=== PATIENT | male | born 1960 | race Caucasian/White ===

== ENCOUNTER → 2018-01-13 | Day surgery (SDC) | payer MEDICAID, OTHER ==
[~2018-01-13] MED LIST: LIDOCAINE 1% 300 MG/30 ML SDV ONE
== END | disposition home or self-care (01) ==
LOC: FIMAGING 07:54
PROVIDERS: ATTEND Nurse Practitioner Family
PROC: 02H633Z Insertion of Infusion Device into Right Atrium, Percutaneous Approach (ICD-10-PCS; principal; 2018-01-13)
DX: A69.20 Lyme disease, unspecified (principal)
CPT/HCPCS: 36569; 77001; C1751

== ENCOUNTER 2018-07-07 10:59 | Emergency (ER) | payer MEDICAID, OTHER ==
[2018-07-07] MEDS ORDERED: IBUPROFEN 600 MG TAB PO ONE ×2 (11:12→11:14)
[2018-07-07] MEDS ORDERED: LIDOCAINE 4%/MENTHOL 1% PATCH TD ONE (12:07)
--- NOTE | 2018-07-07 12:09 | EDPHY ---
General - History Smoking Status: Never smoked Time Seen by Provider: 07/07/18 11:55 Narrative: CLINICAL IMPRESSION: Upper back pain, fall ASSESSMENT/PLAN: Patient is a 57-year-old male with no significant medical history who presents with a complaint of upper back pain after slipping and falling on the ice. Patient is afebrile and not toxic appearing, he is in no acute distress on arrival. HSNE intact with no significant red flags. Thoracic CT today with acute T4 compression fracture. History and physical examination today is consistent with acute T4 compression fracture. He had no saddle paresthesias, lower extremity numbness, tingling, major motor weakness, urinary retention or bowel/bladder incontinence. No indication for emergent MRI. There were no clinical findings to suggest cauda equina syndrome, epidural abscess/hematoma, epidural compression syndrome, AAA, dissection or additional emergent intraabdominal infectious/obstructive process. Patient was given single dose of ibuprofen and a lidoderm patch was placed while in the ED with improvement of his pain. Neurosurgery was consulted , I discussed this case directly with Dr. Zhong. Recommendation was for CT-0 brace and follow up in 2 weeks with repeat imaging at that time. The patient was fitted by [employer] for his [employer] OF [employer] brace and remained neurologically intact. His pain improved. On repeat exam prior to discharge he is well-appearing, his neurological exam remained grossly normal with no focal deficit and he was able to ambulate independently without difficulty. Strict return precautions discussed- he will return for increased or unmanageable pain, new injury, new midline back pain, numbness, tingling, weakness of legs, loss of bowel or bladder control, saddle paresthesia, urinary retention, loss of bowel or bladder control, difficulty walking or for any other new, worsening or worrisome symptoms. Patient verbalizes understanding and he is in agreement with plan. DIFFERENTIAL DX: Fracture, subluxation, epidural compression syndrome, cauda equina ED COURSE: 1210: Case discussed with Dr. Locke, will proceed with thorax CT. CHIEF COMPLAINT: Upper back pain HPI: Patient is a 57-year-old male with no significant medical history who presents to the emergency department with midline thoracic pain after sustaining a slip and fall on the ice. Patient reports he was out walking in his driveway when he slipped causing him to land directly on his upper back, feels like there is a golf ball in the center of his spine. He did not hit his head, there was no loss of consciousness. Patient denies saddle paresthesias, lower extremity numbness, tingling, major motor weakness, urinary retention or bowel/bladder incontinence. He has no history of neck or back problems. Denies any other injury. PAST MEDICAL HISTORY: Denies Family History: Not contributory Social History: Denies ROS: A full 10 point review of systems was negative except for those mentioned in HPI. PHYSICAL EXAM: General Appearance: Well-developed, uncomfortable appearing however not toxic- appearing. HENT: Normocephalic, atraumatic. External ears are normal. TMs are clear bilaterally no perforation or hemotympanum. Oropharynx clear is no erythema or exudates, no tonsillar hypertrophy or asymmetry. Dentition without abnormality. Eyes: PERRLA, EOMI intact with no evidence of entrapment, no swelling, discharge , pain or photosensitivity. Conjunctiva pink, no pallor or injection Neck: Supple, nontender, no lymphadenopathy, no midline pain, FROM, no meningismus. Respiratory: There are no retractions, lungs are clear to auscultation. Cardiac: Regular rate and rhythm, no murmurs or gallops. Gastrointestinal: Abdomen is soft, nontender, bowel sounds normal, no masses/ hernia, no rigidity, guarding or focal peritoneal findings. Back: No step-off, palpable bony abnormality, edema, erythema or ecchymosis of the cervical, thoracic or lumbar spines. TTP: Upper midline T-spine without obvious deformity, ecchymosis or wound. Full range of motion of all spines 5/5 and equal strength of the UEs and LEs bilaterally including shoulder shrug. Pulses: 2+ and equal radial, DP and PT pulses bilaterally. Sensation intact and symmetric to light touch from face, UEs and LEs bilaterally. Back Pain Pathway Low/medium concern for Acute Spinal Emergency (ASE) High Sensitivity Neuro Exam (HSNE) T1: move fingers apart- no deficit T2-12: trunk sensation- no deficit Lumbar pain L1: inner thigh sensation- no deficit L2: ADduct thigh (cross legs) -no deficit L3: Extend knee- no deficit L4: Ankle dorsiflexion- no deficit L5: Great toe extension- no deficit S1: Flex knee- no deficit S3-4: bladder/bowel function- no dysfunction HSNE no deficit Skin: Warm, dry, no rashes, no nodules on palpation. MEDICAL DECISION MAKING: Patient was seen independently. Secondary supervising physician at time of evaluation was Dr. Locke, he did not personally evaluate this patient however we discussed case, results and plan of care. Diagnosis: T4 compression fracture. New, requires workup Summary: See Assessment and Plan for summary of ED visit Clinical lab tests: Not applicable. Independent visualization of images, tracing, or specimens: Yes. Decision to obtain medical records or history from someone other than the patient: No Review / Summarize previous medical records: No Discussed patient with another provider: Yes, Dr. Locke and Dr. Zhong Patient Progress: Stable, discharged. (Annabel Bal) Medical Decision Making: I did not see this patient while he was in the emergency department. However his care was discussed with the PA while the patient was in the department. I agree with treatment plan and management (Mikey Locke) - Objective Vital Signs: Initial Vital Signs Temperature (C) 36.6 C 07/07/18 11:03 Heart Rate 59 L 07/07/18 11:03 Respiratory Rate 18 07/07/18 11:03 Blood Pressure 115/87 H 07/07/18 11:03 O2 Sat (%) 98 07/07/18 11:03 O2 Delivery Mode Room Air Allergies/Adverse Reactions: No Known Allergies Allergy (Unverified 03/13/16 07:19) Home Medications: Medication Instructions Recorded Hydrocodone/APAP 5/325 [[place] 1 - 2 tab PO Q4H PRN #10 tab 07/07/18 5/325 (*)] Medications Given: Discontinued Medications Ibuprofen (Motrin) 600 mg PO EDNOW ONE Stop: 07/07/18 11:15 Last Admin: 07/07/18 11:15 Dose: 600 mg Miscellaneous Medication (Icy Hot Lidocaine/Menthol 4%/1% Patch) 1 patch TD EDNOW ONE Stop: 07/07/18 12:08 Last Admin: 07/07/18 12:30 Dose: 1 patch Departure - Departure Disposition: Home, Routine, Self-Care Clinical Impression: Compression fracture of T4 vertebra Condition: Good Instructions: Vertebral Compression Fracture (ED) Additional Instructions: DISCHARGE INSTRUCTIONS FROM YOUR DOCTOR Thank you for visiting our emergency department today. Please keep in mind that discharge from the emergency department does not mean that there is nothing wrong - it simply means that we have not identified an emergency condition that requires further evaluation or treatment in the hospital. You should always plan to follow up with primary care for re-evaluation of your condition in the next 2-3 days. If you have been referred to a specialist, please call as soon as possible ( today or tomorrow) to schedule your follow up appointment at the appropriate time; please call to schedule a follow-up appointment with Neurosurgery in 2 weeks for repeat examination and repeat x-rays. You had findings suggestive of osteoporosis, the radiologist recommended a DEXA scan to be done through your primary care provider. Please continue to wear your brace when you are upright. You may remove this when you are in the shower and when you are sleeping. If you are in the shower without her brace, it is very important that you maintain good posture holding her shoulders back. For pain control: You may take Tylenol, I recommend 500-1000 mg every 6-8 hours as needed. Take with food and a full glass of water. Stop taking if this is upsetting her stomach. Do not exceed 4000 mg in a 24 hr period. You may also take ibuprofen, recommend 400 mg every 6 hr. Take with food and a full glass of water. Stop taking if this upsets her stomach. Do not exceed 2400 mg in a 24 hr period. Salonpas topical lidocaine patch if you feel this helps. Please follow the instructions on the packaging, you may purchase these [id number] at your pharmacy. People present with illnesses and injuries in different ways, and it is always possible that we have missed something. You may always return for re-evaluation if symptoms worsen or if they are not improving or if you develop new/different symptoms. Again, thank you for choosing our emergency department. We hope that you feel better. Referrals: Luis Zhong MD [Medical Doctor] - 2-3 days, call for appt. (You will need to be seen in 2 weeks for repeat examination and repeat x-rays. Please call to schedule this appointment.) Shell Austin MD [Medical Doctor] - 2-3 days, call for appt. (Please establish care with a primary care provider, this has been provided to you.) Prescriptions: Hydrocodone/APAP 5/325 [[place] 5/325 (*)] 1 - 2 tab PO Q4H PRN #10 tab PRN Reason: Pain, Moderate
[2018-07-07 15:00] VITALS: BP 134/66
[2018-07-07] MEDS ORDERED: PATCH REMOVAL 1 EA PATCH TD SCH (21:00)
== END 2018-07-07 14:52 | disposition home or self-care (01) ==
LOC: EDUNIT#
DX: S22.000A Wedge compression fracture of unspecified thoracic vertebra, initial encounter for closed fracture (principal); W00.0XXA Fall on same level due to ice and snow, initial encounter; Y92.9 Unspecified place or not applicable; Y93.9 Activity, unspecified; Y99.9 Unspecified external cause status